=== PATIENT | male | born 2005 | race Two or more races ===

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

== ENCOUNTER 2024-01-09 08:59 | Outpatient (CLI) | payer OTHER | END 2024-01-09 09:07 | disposition home or self-care (01) | LOC: RAD 08:59 | PROVIDERS: ATTEND Orthopaedic Surgery | DX: S62.324A Displaced fracture of shaft of fourth metacarpal bone, right hand, initial encounter for closed fracture (principal) ==